=== PATIENT | male | born 1980 | race Two or more races ===

== ENCOUNTER 2019-01-31 09:44 | Emergency (ER) | payer OTHER ==
[~2019-01-31] VITALS: Ht 182.9 cm; Wt 102.3 kg
[2019-01-31 09:57] VITALS: BP 127/75
[2019-01-31] MEDS ORDERED: ASPI81 PO (10:08)
[2019-01-31] MEDS ORDERED: LOSA50TA64 PO (10:08)
[2019-01-31 11:54] LABS: GLUCOSE,POINT OF CARE 78 MG/DL (70-110)
== END 2019-01-31 12:48 | disposition home or self-care (01) ==
LOC: EMS 09:47
DX: R51 Headache (principal); I10 Essential (primary) hypertension; Z79.82 Long term (current) use of aspirin; Z79.899 Other long term (current) drug therapy